=== PATIENT | male | born 1960 | race Caucasian/White ===

== ENCOUNTER 2018-02-19 10:49 | Outpatient (CLI) | payer OTHER ==
[2018-02-19 11:38] LABS: APPEARANCE,URINE CLEAR (CLEAR); COLOR,URINE YELLOW (YELLOW); OCCULT BLOOD,URINE NEGATIVE (NEGATIVE); UROBILINOGEN URINE 0.2 Eu (0.2-1.0)
[2018-02-19 11:39] LABS: eGFR (African) > 60; eGFR (Non-African) > 60
== END 2018-02-19 10:50 ==
LOC: LAB 10:49
PROVIDERS: ATTEND Nurse Practitioner Family
DX: Z00.00 Encounter for general adult medical examination without abnormal findings (principal); Z12.5 Encounter for screening for malignant neoplasm of prostate; I10 Essential (primary) hypertension
CPT/HCPCS: 36415; 80053; 80061; 81002; 84153; 84439; 84443; 85027

== ENCOUNTER 2019-08-05 10:28 | Outpatient (CLI) | payer OTHER ==
--- NOTE | 2019-08-05 11:33 | Diagnostic Imaging Report ---
PATIENT MR#: [id number] PATIENT PATIENT NAME: EDGAR POWER DATE OF : 1960 REFERRING PHYSICIAN: Argenis Sahu EXAM DATE: 08/05/2019 ACCESSION NUMBER: [id number] EXAM DESCRIPTION: CHEST 2VIEW Exam: AP chest. History: Shortness of breath. No previous studies are available for comparison. Lung rojas are well aerated without doris consolidation or effusion. Heart and mediastinal contour are normal. Degenerative changes in the thoracic spine are noted. Impression: No doris consolidation or effusion. Read by: Dr. Stevo Clifton Transcribed by: Transcribed Date: Electronically signed by: Dr. Stevo Clifton Date signed: 08/05/2019 11:32:31 AM
--- NOTE | 2019-08-05 11:35 | Diagnostic Imaging Report ---
PATIENT MR#: [id number] PATIENT PATIENT NAME: EDGAR POWER DATE OF : 1960 REFERRING PHYSICIAN: Argenis Sahu EXAM DATE: 08/05/2019 ACCESSION NUMBER: [id number] EXAM DESCRIPTION: ABD COMPLETE Exam: Abdomen. History: Flank pain. Supine and upright views of the abdomen are submitted. Scattered loops of bowel gas in both large and small intestine is noted with a mild amount of retaine d fecal material seen in the colon. No organomegaly is seen. No free air is identified. Impression: Nonspecific bowel gas pattern. No free air is identified. Read by: Dr. Stevo Clifton Transcribed by: Transcribed Date: Electronically signed by: Dr. Stevo Clifton Date signed: 08/05/2019 11:34:31 AM
[2019-08-05 11:53] LABS: APPEARANCE,URINE CLEAR (CLEAR); COLOR,URINE YELLOW (YELLOW); OCCULT BLOOD,URINE NEGATIVE (NEGATIVE); PH URINE 6.5 (5.0 - 8.0)
[2019-08-05 12:52] LABS: HDL 103 mg/dL (>40); eGFR (Non-African) > 60
[2019-08-05 14:22] LABS: NEUTROPHILS # 23.2 # k/uL (1.4-7.7); SEGMENTED NEUTROPHILS % 91 % (39-79)
== END 2019-08-05 10:33 ==
LOC: LAB 10:28
PROVIDERS: ATTEND Nurse Practitioner Family
DX: I10 Essential (primary) hypertension (principal); E78.2 Mixed hyperlipidemia; R30.0 Dysuria; R97.20 Elevated prostate specific antigen [PSA]
CPT/HCPCS: 36415; 74019; 80053; 80061; 81002; 84153; 84403; 84439; 84443; 85025; 85651